=== PATIENT | female | born 1960 | race Caucasian/White ===

== ENCOUNTER 2017-09-24 21:30 | Emergency (ER) | payer BC ==
[~2017-09-24] VITALS: Ht 170.2 cm; Wt 90.7 kg
--- NOTE | ~2017-09-24 | EKG ---
[place] [address] [facility] [employer] [place] [address] ELECTROCARDIOGRAM REPORT Name: GUERO CALIXTO Room #: 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 09/25/17 0806 [id number] New Lord MD, FACC /EPI
[~2017-09-24 21:30] MED LIST: DIGITEK125 MC1 PO; SYNTHROID200 MCG PO; ZOLOFT100 MG PO
[2017-09-24] MEDS ORDERED: PRISTIQ100 MG PO (22:02)
[2017-09-24 22:34] LABS: HEMATOCRIT 40.2 % (37.0-47.0); HEMOGLOBIN 13.8 gm/dL (12.0-15.0); MCH 28.6 pg (26.0-34.0); MCHC 34.3 g/dL (28.0-37.0); MCV 83.2 fL (80.0-100.0); RBC 4.83 mil/uL (4.20-5.00); RDW 13.7 % (10.5-14.5); WBC 8.3 thou/uL (4.0-11.0)
[2017-09-24 22:36] LABS: CALCIUM 8.8 mg/dL (8.5-10.1); CREATININE 0.8 mg/dL (0.6-1.0); POTASSIUM 3.7 mmol/L (3.5-5.1)
[2017-09-25 00:13] VITALS: BP 169/69
== END 2017-09-25 00:14 | disposition home or self-care (01) ==
LOC: ER 21:30
PROVIDERS: Physician Assistant
DX: R03.0 Elevated blood-pressure reading, without diagnosis of hypertension (principal); E03.9 Hypothyroidism, unspecified